=== PATIENT | male | born 1950 | race African-American/Black ===

== ENCOUNTER 2017-08-23 19:19 | Emergency (ER) | payer OTHER ==
[2017-08-23 19:26] VITALS: BP 147/98; PULSE 72; TEMP 98.5; BMI 30.8
--- NOTE | 2017-08-23 19:38 | PDOC ---
History of Present Illness <NaniStefanie - Last Filed: 08/23/17 22:12> - General History Source: Patient Exam Limitations: No Limitations - History of Present Illness Initial Comments: 08/23/17 20:46 The patient is a 67 year old male with past medical history of hypertension, hyperlipidemia, BPH, and kidney stones who presents to the ED with a urinary catheter complaint. The patient states he had a Urolift procedure today in his urologists office in which he left with a catheter in place. From about 3:30 this afternoon, the patient states that every time he has had to urinate, his urine has been not going into his catheter and he has subsequently used the bathroom on himself multiple times. Additionally, the patient complains of discomfort to his penis when he has to urinate. The patient denies any urgency, frequency, hesitancy, or hematuria. He denies any fever, chills, nausea, vomiting, diarrhea, cough, SOB. Urologist: Dr. Milo Espinoza <Analy Pollard - Last Filed: 08/23/17 22:15> - General Chief Complaint: Urinary Catheter Problem Stated Complaint: CATHETER PROBLEM Time Seen by Provider: 08/23/17 19:38 Past History - Past Medical History HTN: Yes Hypercholesterolemia: Yes Kidney Stones: Yes - Suicide/Smoking/Psychosocial Hx Smoking History: Never smoked <NaniStefanie - Last Filed: 08/23/17 22:12> <Analy Pollard - Last Filed: 08/23/17 22:15> - Past Medical History Allergies/Adverse Reactions: Allergies Allergy/AdvReac Type Severity Reaction Status Date / Time fexofenadine HCl Allergy Verified 08/23/17 19:27 [From [facility]] Review of Systems - Review of Systems Able to Perform ROS?: Yes Comments:: 08/23/17 20:46 GENERAL/CONSTITUTIONAL: No fever or chills. No weakness. HEAD, EYES, EARS, NOSE AND THROAT: No change in vision. No ear pain or discharge. No sore throat CARDIOVASCULAR: No chest pain or shortness of breath. RESPIRATORY: No cough, wheezing, or hemoptysis. GASTROINTESTINAL: No nausea, vomiting, diarrhea or constipation. GENITOURINARY: Present: genital discomfort No dysuria, frequency, or change in urination. MUSCULOSKELETAL: No joint or muscle swelling or pain. No neck or back pain. SKIN: No rash NEUROLOGIC: No headache, vertigo, loss of consciousness, or change in strength/ sensation. ENDOCRINE: No increased thirst. No abnormal weight change. HEMATOLOGIC/LYMPHATIC: No anemia, easy bleeding, or history of blood clots. ALLERGIC/IMMUNOLOGIC: No hives or skin allergy. All Other Systems: Reviewed and Negative <Analy Pollard - Last Filed: 08/23/17 22:15> *Physical Exam - Vital Signs Last Vital Signs Temp Pulse Resp BP Pulse Ox 98.5 F 72 18 147/98 99 08/23/17 19:24 08/23/17 19:24 08/23/17 19:24 08/23/17 19:24 08/23/17 19:24 <Stefanie Cardoza - Last Filed: 08/23/17 22:12> - Vital Signs Last Vital Signs Temp Pulse Resp BP Pulse Ox 98.5 F 72 18 147/98 99 08/23/17 19:24 08/23/17 19:24 08/23/17 19:24 08/23/17 19:24 08/23/17 19:24 - Physical Exam Comments: 08/23/17 20:47 GENERAL: Awake, alert, and fully oriented, in no acute distress HEAD: No signs of trauma EYES: PERRLA, EOMI, sclera anicteric, conjunctiva clear ENT: Auricles normal inspection, hearing grossly normal, nares patent, oropharynx clear without exudates. Moist mucosa NECK: Normal ROM, supple, no lymphadenopathy, JVD, or masses LUNGS: Breath sounds equal, clear to auscultation bilaterally. No wheezes, and no crackles HEART: Regular rate and rhythm, normal S1 and S2, no murmurs, rubs or gallops ABDOMEN: Soft, nontender, normoactive bowel sounds. No guarding, no rebound. No masses EXTREMITIES: Normal range of motion, no edema. No clubbing or cyanosis. No cords, erythema, or tenderness NEUROLOGICAL: Cranial nerves II through XII grossly intact. Normal speech, normal gait GENITAL: uncircumcised, mild tenderness of penile shaft, de oliveira catheter in place with small amount of urine leaking from penis, 400 cc of dark colored urine in the de oliveira bag <Analy Pollard - Last Filed: 08/23/17 22:15> Medical Decision Making - Medical Decision Making 08/23/17 22:06 Pt presents to ED complaining of urine leaking around the catheter and pain with urination since urolift procedure performed in his urologist's office today. De Oliveira was in place with 400 cc of urine. Case discussed with patient' s urologist, who recommends removal of the de oliveira with a trial of void afterward. De Oliveira was removed and patient was able to void 100 cc. Patient and his understand that he is at risk for urinary retention and he will return to the ED if he is unable to pass urine. <Stefanie Cardoza - Last Filed: 08/23/17 22:12> - Medical Decision Making 08/23/17 20:57 Phone call placed with Dr. Espinoza's answering service. Awaiting call back. 08/23/17 21:08 Phone call returned by Dr. Espinoza, case discussed. <AtulAnaly - Last Filed: 08/23/17 22:15> *DC/Admit/Observation/Transfer - Discharge Dispostion Admit: No <Stefanie Cardoza - Last Filed: 08/23/17 22:12> - Attestations Scribe Attestion: 08/23/17 20:48 Documentation prepared by Analy Pollard, acting as medical record transcriber for Stefanie Cardoza MD. <AtulAnaly - Last Filed: 08/23/17 22:15> Diagnosis at time of Disposition: Catheter (urine) change required - Discharge Dispostion Disposition: HOME Condition at time of disposition: Good - Referrals Referrals: Anthony Mejia [Primary Care Provider] - - Patient Instructions Printed Discharge Instructions: DI for Urinary Retention in Men Additional Instructions: You may become unable to urinate since the catheter has been removed. You should return to the ED for abdominal pain or a swollen abdomen, or if you are unable to pass urine for several hours, or if you feel the urge to urinate but are unable to go.
== END 2017-08-23 22:46 | disposition home or self-care (01) ==
LOC: JER 19:19
DX: T83.038A Leakage of other urinary catheter, initial encounter (principal); Y83.8 Other surgical procedures as the cause of abnormal reaction of the patient, or of later complication, without mention of misadventure at the time of the procedure; Y92.038 Other place in apartment as the place of occurrence of the external cause
CPT/HCPCS: 99281-25

== ENCOUNTER 2019-01-07 12:46 | Emergency (ER) | payer OTHER ==
[2019-01-07 13:27] VITALS: BP 152/85; PULSE 69; TEMP 98.9; BMI 29.4
--- NOTE | 2019-01-07 14:25 | PDOC ---
History of Present Illness - General Chief Complaint: Pain Stated Complaint: RECTUM PAIN Time Seen by Provider: 01/07/19 13:54 History Source: Patient Exam Limitations: No Limitations - History of Present Illness Travel History: No Initial Comments: 01/07/19 14:21 came for reevaluation of significant rectal pain. With presumed rectal fissures , Has seen textile examiner 2 and prescribed a type of medication with nitroglycerin which patient became extremely irritated. States creams that were prepared with nitroglycerin and Anusol, both prescribed and [id number] medications have only irritated his rectum or. Patient denies fever, denies any bright red blood or profuse bleeding from bowels. States stopped Procardia which was thought to be related to his constipated problem 2 weeks ago and feels the past 3 days his stools have become less firm. Denies fever, nausea vomiting. Timing/Duration: reports: getting worse, intermittent Quality: reports: moderate, severe, burning Past History - Travel Traveled outside of the country in the last 30 days: No Close contact w/someone who was outside of country & ill: No - Past Medical History Allergies/Adverse Reactions: Allergies Allergy/AdvReac Type Severity Reaction Status Date / Time fexofenadine HCl Allergy Verified 01/07/19 13:54 [From [facility]] Home Medications: Ambulatory Orders Glycerin Suppository Adult - 1 each RC DAILY #30 supp.rect 01/07/19 Metoprolol Succinate [Toprol Xl] 100 mg PO DAILY 01/07/19 Nifedipine [Nifedipine ER] 60 mg PO DAILY 01/07/19 Olmesartan Medoxomil 40 mg PO DAILY 01/07/19 Pravastatin Sodium 20 mg PO DAILY 01/07/19 Spironolactone 25 mg PO BID 01/07/19 HTN: Yes Hypercholesterolemia: Yes Kidney Stones: Yes - Suicide/Smoking/Psychosocial Hx Smoking History: Never smoked Have you smoked in the past 12 months: No Information on smoking cessation initiated: No Hx Alcohol Use: No Drug/Substance Use Hx: No Review of Systems - Review of Systems Able to Perform ROS?: Yes Is the patient limited Luxem[place]ish proficient: Yes Constitutional: Yes: See HPI. No: Symptoms Reported HEENTM: Yes: See HPI. No: Symptoms Reported ABD/GI: Yes: Symptoms Reported : Yes: Symptoms Reported, See HPI, Burning (to anus) All Other Systems: Reviewed and Negative *Physical Exam - Vital Signs Last Vital Signs Temp Pulse Resp BP Pulse Ox 98.9 F 69 20 152/85 100 01/07/19 13:22 01/07/19 13:22 01/07/19 13:22 01/07/19 13:22 01/07/19 13:22 - Physical Exam General Appearance: Yes: Nourished, Appropriately Dressed, Apparent Distress, Mild Distress HEENT: positive: RUBÉN, Normal ENT Inspection, TMs Normal, Pharynx Normal Neck: positive: Supple. negative: Tender Respiratory/Chest: positive: Lungs Clear Gastrointestinal/Abdominal: positive: Normal Bowel Sounds, Soft. negative: Tender, Guarding, Rebound Rectal Exam: positive: heme negative stool. negative: normal exam (tight and too uncomf for rectal internal exam. Outer anal area with no erythema, excoriation, or external hemorhoids noted. Unable to perform a digital exam. ) Musculoskeletal: positive: Normal Inspection Extremity: positive: Normal Capillary Refill Integumentary: positive: Dry, Warm Neurologic: positive: credit professional II-XII NML intact, Fully Oriented, Alert, Normal Mood/ Affect, Normal Response, Motor Strength 5/5 Moderate Sedation - Procedure Monitoring Vital Signs: Procedure Monitoring Vital Signs Temperature 98.9 F 01/07/19 13:22 Pulse Rate 69 01/07/19 13:22 Respiratory Rate 20 01/07/19 13:22 Blood Pressure 152/85 01/07/19 13:22 O2 Sat by Pulse Oximetry (%) 100 01/07/19 13:22 Progress Note - Progress Note Progress Note: The pain, will use only glycerin suppositories as multiple other anal preparations seem to have caused sensitivities. Dr. Bacon will follow up with patient tomorrow to help referred to colorectal surgeon for further treatment Medical Decision Making - Medical Decision Making 01/07/19 14:[address] Bacon, GI who reports has tried multiple different types of creams for constipated of pain and history of rectal fissure. *DC/Admit/Observation/Transfer Diagnosis at time of Disposition: Anal or rectal pain - Discharge Dispostion Disposition: HOME Condition at time of disposition: Stable Decision to Admit order: No - Referrals Referrals: Anthony Mejia [Primary Care Provider] - Vinnie Bacon MD [Staff Physician] - - Patient Instructions Printed Discharge Instructions: DI for Anal Fissure Additional Instructions: Rest, drink lots of fluids: Teas, water, soups Vanessa jeanna, carbonated beverages for the bubbles Avoid heavy, fatty, bulky foods until else start moving regularly May add mineral oil/olive oil nightly to help lubricate GI tract May use glycerin suppositories as needed Lots of handwashing and good hygiene Continue [id number]-mnt-[id number] medications for symptomatic relief; old fashion treatments for constipation including prune juice, lots of fluids, Tylenol or Motrin for fever and pain May use glycerin suppositories 2-3 times daily- 1 tablespoon of olive oil/ mineral oil nightly for same affect Call Dr. Bacon's office tomorrow for assistance in obtaining colorectal surgeon appointment Followup with private physician in one to 2 days as needed Return to emergency department for worsened symptoms, fevers, nausea or vomiting , bloating, abdominal pain or inability to move bowels - Post Discharge Activity Forms/Work/School Notes: Back to Work
== END 2019-01-07 14:46 | disposition home or self-care (01) ==
LOC: JERFT 12:46
DX: K62.89 Other specified diseases of anus and rectum (principal); I10 Essential (primary) hypertension; E78.00 Pure hypercholesterolemia, unspecified; Z87.442 Personal history of urinary calculi
CPT/HCPCS: 99281-25